=== PATIENT | female | born 1995 ===

== ENCOUNTER → 2018-03-05 | Outpatient (REF) | payer OTHER ==
[2018-03-05 13:22] LABS: PLATELET COUNT, AUTOMATED 261 K/uL (150-450)
== END ==
PROVIDERS: ATTEND Nurse Practitioner Family
DX: R07.9 Chest pain, unspecified (principal)
CPT/HCPCS: 82040; 82247; 82310; 82374; 82435; 82565; 82947; 84075; 84132; 84155; 84295; 84450; 84460; 84520; 85025; 85379

== ENCOUNTER → 2018-03-05 | Outpatient (CLI) | payer OTHER ==
[~2018-03-05] MED LIST: IOPAMIDOL 76% 75 ML INFUS BTL 75 ML ONE; NS 0.9% 25 ML BAG 25 ML ONE
--- NOTE | 2018-03-05 15:51 | RADIOLOGY IMAGING REPORT ---
FACILITY: PATIENT NAME: Alie Sandoval : 1995 MR: [id number] V: [id number] EXAM DATE: ORDERING PHYSICIAN: STEPHIE CARPIO TECHNOLOG[place] [facility] [place]ie Sand[place] : 1995 Visit/Account:[id number] Date of Sevice: 03/05/2018 CTA CHEST W CNTR (PULM ANG) HISTORY: Chest pain TECHNIQUE: CTA chest with intravenous contrast attention to pulmonary arteries. Sagittal, coronal a nd slab 3D MIP coronal reconstructed images were also created for further evaluation and interpretati on. One of the following dose optimization techniques was utilized in the performance of this exam: Autom ated exposure control; adjustment of the mA and/or kV according to the patient's size; or use of an i terative reconstruction technique. Specific details can be referenced in the facility's radiology CT exam operational policy. CONTRAST: 75 mL Isovue-370. COMPARISON: None. FINDINGS: Heart/vessels: Satisfactory opacification of the pulmonary arteries without visualized pulmonary emb olus. Mediastinum: Negative. Lymph nodes: Negative. Lungs/pleura: Negative. Visualized upper abdomen: Negative. Bones/soft tissues: Negative. IMPRESSION: No acute findings. Negative for pulmonary embolus. Report Dictated By: Julio Lazcano MD at 03/05/2018 3:44 PM Report E-Signed By: Julio Lazcano MD at 03/05/2018 3:47 PM WSN:[id number]
== END ==
LOC: CT 14:03
PROVIDERS: ATTEND Nurse Practitioner Family
DX: R07.9 Chest pain, unspecified (principal)
CPT/HCPCS: 71275; Q9967